=== PATIENT | female | born 1995 | race Caucasian/White ===

== ENCOUNTER 2017-11-29 20:11 | Emergency (ER) | payer OTHER ==
[2017-11-29 20:16] VITALS: TEMP 98.1; O2SAT 98
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
[2017-11-29] MEDS ORDERED: AZITHROMYCIN 250 MG TAB PO ONE (23:41)
[2017-11-29] MEDS ORDERED: ONDANSETRON DISINTEGRATING 4 MG TAB PO ONE (23:41)
[2017-11-30 00:29] VITALS: BP 114/72; PULSE 80; RESP 14
== END 2017-11-30 00:30 | disposition home or self-care (01) ==
LOC: EEVIPCON 20:11 → SANE 11-30 00:30
DX: T74.21XA Adult sexual abuse, confirmed, initial encounter (principal)